=== PATIENT | male | born 2000 | race Caucasian/White ===

== ENCOUNTER 2019-01-29 05:48 | Day surgery (SDC) | payer OTHER ==
[2019-01-29] MEDS: LACTATED RINGER'S 1,000 ML IV (06:22)
[2019-01-29] MEDS ORDERED: PROPOFOL 20 ML (07:21)
[2019-01-29] MEDS ORDERED: LIDOCAINE 100 MG SYRINGE (07:21)
[2019-01-29] MEDS ORDERED: SUCCINYLCHOLINE CHLORIDE 100 MG/5 ML SYG IV (07:21)
[2019-01-29] MEDS ORDERED: MIDAZOLAM 1 MG/ML 2 ML INJ (07:47)
[2019-01-29] MEDS ORDERED: ONDANSETRON 4 MG INJ IV (08:30)
[2019-01-29] MEDS ORDERED: FENTAnyl 50 MCG/ML VIAL IV (08:30)
[2019-01-29] MEDS: FAMOTIDINE 20 MG INJ IV (08:35)
== END 2019-01-29 09:40 | disposition home or self-care (01) ==
LOC: GIL 05:48 → SDS 05:48 → GIL 09:40
DX: K44.9 Diaphragmatic hernia without obstruction or gangrene (principal); K21.0 Gastro-esophageal reflux disease with esophagitis; K31.3 Pylorospasm, not elsewhere classified; K29.80 Duodenitis without bleeding
CPT/HCPCS: 43239; 88305; 88312